=== PATIENT | female | born 1975 | race Native Hawaiian/Other Pacific Islander ===

== ENCOUNTER 2021-04-07 15:45 | Emergency (ER) | payer BC ==
[~2021-04-07] VITALS: Ht 175.3 cm; Wt 113.4 kg
[2021-04-07 16:00] VITALS: TEMP 98.6
== END 2021-04-07 19:20 | disposition home or self-care (01) ==
LOC: ED 15:45
DX: Z53.21 Procedure and treatment not carried out due to patient leaving prior to being seen by health care provider (principal); U07.1 COVID-19
CPT/HCPCS: 99281

== ENCOUNTER 2021-04-11 14:01 | Outpatient (CLI) | payer BC, OTHER ==
[~2021-04-11] VITALS: Ht 175.3 cm; Wt 113.4 kg
== END 2021-04-11 21:18 | disposition home or self-care (01) ==
LOC: INF 14:01
PROVIDERS: ATTEND Family Medicine
DX: Z23 Encounter for immunization (principal); U07.1 COVID-19
CPT/HCPCS: 96365; M0244